=== PATIENT | male | born 1950 | race Caucasian/White ===

== ENCOUNTER → 2017-12-11 | Day surgery (SDC) | payer MEDICARE, BC ==
[~2017-12-11] MED LIST: Cyclopentolate 1% Opth Drop 2 ML BOT ONE; Famotidine/PF 20 mg/2ml Vial ONE; Fentanyl 100 MCG/2 ML VIAL ONE; Fluorouracil 100 MG, Enoxaparin Sodium 25 MG, EPINEPHrine 0.3 MG in Ophthalmic Irrigati... FS SCH; Midazolam HCl 2 mg/2 ml Vial ONE; Phenylephrine 2.5% Ophth Soln 5 ML BOT ONE
--- NOTE | 2017-12-12 00:57 | OP ---
DATE OF PROCEDURE: 12/11/2017 PREOPERATIVE DIAGNOSIS: Rhegmatogenous retinal detachment, left eye. POSTOPERATIVE DIAGNOSIS: Rhegmatogenous retinal detachment, left eye. PROCEDURE: Pars plana vitrectomy and retinal detachment repair, left eye. SURGEON: Dr. Price. ANESTHESIA: General endotracheal. PROCEDURE IN DETAIL: The patient was identified in the preoperative holding area. Appropriate infor med consent for the planned surgical procedure on the left eye had been obtained. The patient was tr ansported to the operative suite. Appropriate cardiopulmonary monitoring established. General endot demetria was initiated. Local anesthesia was obtained using retrobulbar block. The patient was prepp ed and draped in the usual sterile manner for ophthalmic surgery in the left eye. Lid speculum was p laced in the left eye. The 25-gauge trocars were placed in conjunctiva and sclera supratemporally, i nferotemporally, and supranasally. Infusion line was placed inferotemporally. Light pipe and vitreo us cutter inserted into the eye. Core vitrectomy was performed. Attention was turned to the tears a t the 3 o'clock position. Careful vitrectomy was performed 360 degrees. Complete air fluid exchange was performed with 10 minutes being allowed for good fluid to drain posteriorly through posterior re tinotomy. A 360 laser was placed using endolaser delivery device. A 28% sulfur hexafluoride gas was infused into the eye. Trocars were removed. Sclerotomies were sutured closed. Retrobulbar Kenalog and subconjunctival Ancef were placed. Antibiotic ointment placed, and the eye was patched and shie lded. The patient was advised to position left side down, call for pain not relieved by Tylenol, and follow up in the morning with Dr. Price.
== END ==
LOC: SDC 15:05
PROVIDERS: ATTEND Ophthalmology Retina Specialist
PROC: 08B53ZZ Excision of Left Vitreous, Percutaneous Approach (ICD-10-PCS; principal; 2017-12-11)
PROC: 08QF3ZZ Repair Left Retina, Percutaneous Approach (ICD-10-PCS; 2017-12-11)
DX: H33.022 Retinal detachment with multiple breaks, left eye (principal); Z79.899 Other long term (current) drug therapy
CPT/HCPCS: 67025; J0171; J1650; J2250; J3010; J9190; S0028

== ENCOUNTER 2018-01-03 13:26 | Outpatient (CLI) | payer MEDICARE, BC ==
--- NOTE | 2018-01-03 16:12 | MRI ---
MRI OF LUMBAR SPINE WITHOUT CONTRAST 01/03/18 COMPARISON: 02/05/13 TECHNIQUE: MRI of the lumbar spine is performed without intravenous gadolinium administration. Multisequential, multiplanar imaging is performed. FINDINGS: There is appropriate T1 marrow signal intensity of the lumbar vertebrae. Lumbar spine vertebral body height is maintained. No fracture. There is type II Modic changes on the anterior superior aspect of L3. 2.2 mm of retrolisthesis of L2 upon L3. There is a cyst involving the right kidney, incompletely evaluated. The conus medullaris terminates at the superior aspect of L1. T12-L1: No significant central canal stenosis. Neural foramina are patent bilaterally. L1-L2: Mild loss of disc space height. No significant central canal stenosis. Patent neural foramina bilaterally. L2-L3: Mild loss of disc space height. Generalized disc bulge with a small central/right paracentral T2 and STIR hyperintense focus suggesting an annular fissure. Minimal encroachment upon the subartic ular zones. Disc material abuts but does not obscure either traversing L3 nerve root. Trace amount of fluid in both facets. Mild to moderate right and mild left foraminal narrowing. L3-L4: Adequate disc hydration. No significant central canal stenosis. Left and right paracentral dis c bulges. Mild central canal stenosis. Bilaterally, neural foramina are patent. L4-L5: Adequate disc hydration. There is a central/left subarticular disc bulge. Disc material abuts the traversing left L5 nerve root. Disc material also encroaches upon the right subarticular zone and abuts the traversing right L5 nerve root. Mild right and mild to moderate left foraminal narrowing. L5-S1: Adequate disc hydration. No significant central canal stenosis. Neural foramina are patent. IMPRESSION: 1. Degenerative changes of the lumbar spine as above. 2. Annular fissure at L2-3. 3. Probable right renal cyst. 4. When compared to the previous examination, the degree of posterior disc abnormality at L2-L3 has slightly decreased. POS: [id number]
== END 2018-01-03 13:27 | disposition home or self-care (01) ==
LOC: BICMRI 13:26 → TBSIIMAG 13:27
PROVIDERS: ATTEND Neurological Surgery
DX: M51.86 Other intervertebral disc disorders, lumbar region (principal); M47.896 Other spondylosis, lumbar region
CPT/HCPCS: 72148